=== PATIENT | female | born 2000 | race African-American/Black ===

== ENCOUNTER 2023-01-08 12:03 | Emergency (ER) | payer BC ==
[2023-01-08] MEDS ORDERED: ONDANSETRON 4 MG/2 ML VIAL ONE (13:14)
[2023-01-08] MEDS ORDERED: NA CHLORIDE 0.9% 1,000 ML ONE (13:14)
[2023-01-08 13:18] LABS: Absolute Lymphocytes (CBC) 1.6 K/uL (0.7-4.9); Hematocrit 43.5 % (36.0-45.0); Lymphocytes % 26.6 % (15.3-44.8); MCV 88.1 fL (80-100); RBC Red Blood Cell Count 4.93 M/uL (3.86-4.86)
[2023-01-08 13:43] LABS: Albumin 3.6 g/dL (3.4-5.0); Bilirubin Total 0.2 mg/dL (0.2-1.0); Protein, Total 7.3 g/dL (6.4-8.2)
[2023-01-08 13:58] LABS: Specific Gravity > 1.030 (1.005-1.030)
[2023-01-08 14:02] LABS: Specific Gravity > 1.030 (1.005-1.030); Urine Bacteria 20-50 /HPF (<20); Urine Bilirubin NEGATIVE (Negative); Urine Blood Negative (Negative); Urine Clarity Extremely Turbid (Clear); Urine Color Yellow (Yellow); Urine Glucose NEGATIVE (Negative); Urine Mucus 4+ /HPF (None Seen); Urine Protein 1+ (Negative); Urine Urobilinogen Normal (Normal)
--- NOTE | 2023-01-08 14:32 | RAD REPORT ---
EXAM DESCRIPTION: CTAbdomen Pelvis W Contrast - 01/08/2023 2:23 pm CLINICAL HISTORY: Abdominal pain. ABD PAIN COMPARISON: No comparisons TECHNIQUE: Biphasic CT imaging of the abdomen and pelvis was performed with 100 ml non-ionic IV cont rast. All CT scans are performed using dose optimization technique as appropriate and may include automated exposure control or mA/KV adjustment according to patient size. FINDINGS: The lung bases are clear. The liver, spleen, pancreas, adrenal glands and kidneys are within normal limits. No bowel obstruction, free air, free fluid or abscess. There is wall thickening seen involving the th e cecum and ascending colon likely mild colitis. The appendix is normal. No evidence of significant lymphadenopathy. No suspicious bony findings. IMPRESSION: Mild right-sided colitis is suspected.
--- NOTE | 2023-01-08 15:04 | ER ---
Nurse's Notes [facility] Name: Paul Ware Age: 22 yrs Sex: Female : 2000 Arrival Date: 01/08/2023 Time: 12:03 Bed 3 Private MD: Diagnosis: Colitis Presentation: 01/08 12:16 Chief complaint: Patient states: abd pain, n/v/d. Coronavirus screen: Vaccine status: me1 Patient reports being unvaccinated. At this time, the client does not indicate any symptoms associated with coronavirus-19. Ebola Screen: No symptoms or risks identified at this time. Initial Sepsis Screen: Does the patient meet any 2 criteria? No. Patient's initial sepsis screen is negative. Does the patient have a suspected source of infection? No. Patient's initial sepsis screen is negative. Risk Assessment: Do you want to hurt yourself or someone else? Patient reports no desire to harm self or others. Onset of symptoms was January 07, 2023. 12:16 [place] Of [place] [facility] [place] Acuity: MIKEL 3 ss Triage Assessment: 12:16 General: Appears uncomfortable, well groomed, well developed, well nourished, Behavior me1 is calm, cooperative, appropriate for age, Reports feeling ill for n/v/d and suprapubic abdominal pain that started yesterday. Pain: Complains of pain in abdomen Pain radiates to back Pain currently is 6 out of 10 on a pain scale. Quality of pain is described as sharp, Pain began gradually, 1 day ago. Neuro: Level of Consciousness is awake, alert, obeys commands, Oriented to person, place, time, situation, Appropriate for age. Cardiovascular: Capillary refill < 3 seconds Patient's skin is warm and dry. Respiratory: Respiratory effort is even, unlabored, Respiratory pattern is regular, symmetrical. GI: Reports diarrhea, nausea, vomiting. ROLLER: 12:16 LMP [place]20[place] [facility] [place]: - Allergies: 12:16 No Known Allergies; me1 - Home Meds: 12:16 None [Active]; me1 - PMHx: 12:16 ovarian cyst; me1 - PSHx: 12:16 None; me1 - Immunization history:: Adult Immunizations up to date. - Social history:: Smoking status: Reported history of juuling and/or vaping. Screenin:35 [facility] ED Fall Risk Assessment (Adult) Score/Fall Risk Level 0 - 2 = Low Risk dd1 Oriented to surroundings, Maintained a safe environment, Educated pt \T\ family on fall prevention, incl call for assistance when getting out of bed, Assessed \T\ reinforced patient's understanding of fall precautions, Hourly rounding (assess needs \T\ fall precautionary measures) done. 12:35 Abuse screen: Denies threats or abuse. Denies injuries from another. Nutritional dd1 screening: NAUSEA AND VOMITING X1 DAY. Tuberculosis screening: No symptoms or risk factors identified. Assessment: 12:35 GI: No deficits noted. Abdomen is flat, non-distended, Bowel sounds present X 4 quads. dd1 Abdomen is tender to palpation in suprapubic area, right lower quadrant and left lower quadrant Reports lower abdominal pain, diarrhea, Patient currently denies bloody stool, HEMATURIA. Vital Signs: 12:16 BP 104 / 78; Pulse 84; Resp 17; Temp 98.8(O); Pulse Ox 99% on R/A; Weight 61.69 kg; me1 Height 5 ft. 3 in. ; Pain 6/10; 14:03 BP 117 / 86; Pulse 64; Resp 17; Pulse Ox 100% ; dd1 12:16 Body Mass Index 24.09 (61.69 kg, 160.02 cm) me1 12:16 Pain Scale: Adult in1 ED Course: 12:05 Patient arrived in ED. rg4 12:09 Brandy Yanez FNP-C is [facility]. kb 12:09 Woody Underwood MD is Attending Physician. kb 12:16 Triage completed. me1 12:16 Arm band placed on Patient placed in waiting room. me1 12:21 Primitivo Duvall, MARY ELLEN is Primary Nurse. bp 12:35 Patient has correct armband on for positive identification. Bed in low position. Adult dd1 w/ patient. Valuables Left with patient. 12:35 Provided Education on:. dd1 13:13 Inserted saline lock: 20 gauge in right antecubital area, using aseptic technique. dd1 13:15 CBC with Diff Sent. dd1 13:15 CMP Sent. dd1 13:15 Lipase Sent. dd1 14:24 CT Abd/Pelvis - IV Contrast Only In Process Unspecified. EDMS 15:19 No provider procedures requiring assistance completed. IV discontinued, intact, dd1 bleeding controlled, No redness/swelling at site. Pressure dressing applied. Administered Medications: 13:12 Drug: Ondansetron IVP 4 mg Route: IVP; Site: right antecubital; dd1 13:13 Drug: NS 0.9% IV 1000 ml Route: IV; Rate: 1 bolus; Site: right antecubital; dd1 15:20 Follow up: Response: No adverse reaction; IV Status: Completed infusion; IV Intake: dd1 1000ml Medication: 12:35 VIS not applicable for this client. dd1 Intake: 15:20 IV: 1000ml; Total: 1000ml. dd1 Outcome: 15:03 Discharge ordered by MD. langford 15:19 Discharged to home ambulatory, with friend. dd1 15:19 Condition: good 15:19 Discharge instructions given to patient, Instructed on discharge instructions, follow up and referral plans. medication usage, Demonstrated understanding of instructions, follow-up care, medications, Prescriptions given X 1. 15:20 Patient left the ED. dd1 Signatures: Dispatcher [employer] EDMS Brandy Yanez, X RAY TECHNICIAN-C X RAY TECHNICIAN-Ckb Jenna Curiel, RN RN ss Toma Ayers rg4 Primitivo Duvall RN RN Hannah Chun, MARY ELLEN RN in1 Ruben Valles, MARY ELLEN RN dd1 Corrections: (The following items were deleted from the chart) 13:28 12:16 Acuity: MIKEL 4 me1 ss
--- NOTE | 2023-01-08 15:04 | EDPHYS ---
Physician Documentation [facility] Name: Paul Ware Age: 22 yrs Sex: Female : 2000 Arrival Date: 01/08/2023 Time: 12:03 Bed 3 Private MD: ED Physician Woody Underwood HPI: 01/08 14:05 This 22 yrs old Black Female presents to ER via Ambulatory with complaints of Abdominal kb Pain, Vomiting/Diarrhea. 14:05 The patient presents with abdominal pain in the lower abdomen. Onset: The kb symptoms/episode began/occurred yesterday. The symptoms do not radiate. Associated signs and symptoms: Pertinent positives: nausea, Pertinent negatives: constipation, diarrhea, fever, vomiting. The symptoms are described as constant. Modifying factors: The symptoms are alleviated by nothing, the symptoms are aggravated by nothing. Severity of pain: At its worst the pain was moderate in the emergency department the pain is unchanged. The patient has not experienced similar symptoms in the past. The patient has not recently seen a physician. 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 - Social history:: Smoking status: Reported history of juuling and/or vaping. ROS: 14:04 Constitutional: Negative for fever, chills, and weight loss. kb 14:04 Abdomen/GI: Positive for abdominal pain, nausea and vomiting, Negative for diarrhea, constipation. 14:04 All other systems are negative. Exam: 14:04 Constitutional: This is a well developed, well nourished patient who is awake, alert, kb and in no acute distress. Head/Face: Normocephalic, atraumatic. ENT: Moist Mucous membranes Cardiovascular: Regular rate and rhythm with a normal S1 and S2. No gallops, murmurs, or rubs. No pulse deficits. Respiratory: Respirations even and unlabored. No increased work of breathing. Talking in full sentences Skin: Warm, dry with normal turgor. Normal color. MS/ Extremity: Pulses equal, no cyanosis. Neurovascular intact. Full, normal range of motion. Neuro: Awake and alert, GCS 15, oriented to person, place, time, and situation. Moves all extremities. Normal gait. 14:04 Abdomen/GI: Inspection: abdomen appears normal, Bowel sounds: normal, Palpation: soft, in all quadrants, mild abdominal tenderness, in the suprapubic area and left lower quadrant, moderate abdominal tenderness, in the right lower quadrant. Vital Signs: 12:16 BP 104 / 78; Pulse 84; Resp 17; Temp 98.8(O); Pulse Ox 99% on R/A; Weight 61.69 kg; me1 Height 5 ft. 3 in. ; Pain 6/10; 14:03 BP 117 / 86; Pulse 64; Resp 17; Pulse Ox 100% ; dd1 12:16 Body Mass Index 24.09 (61.69 kg, 160.02 cm) me1 12:16 Pain Scale: Adult me1 MDM: 12:09 Patient medically screened. kb 14:04 Differential diagnosis: appendicitis, non-specific abd pain, Pyelonephritis, urinary kb tract infection, ovarian cyst. Data reviewed: vital signs, nurses notes. 15:05 Counseling: I had a detailed discussion with the patient and/or guardian regarding: the kb historical points, exam findings, and any diagnostic results supporting the discharge/admit diagnosis, lab results, radiology results, the need for outpatient follow up, a family practitioner, to return to the emergency department if symptoms worsen or persist or if there are any questions or concerns that arise at home. 01/08 13:02 Order name: CBC with Diff; Complete Time: 13:25 kb 01/08 13:02 Order name: CMP; Complete Time: 13:48 kb 01/08 13:02 Order name: Lipase; Complete Time: 13:48 kb 01/08 13:02 Order name: Test, Urine; Complete Time: 14:04 kb 01/08 13:02 Order name: Urinalysis w/ reflexes; Complete Time: 14:04 kb 01/08 13:48 Order name: CT Abd/Pelvis - IV Contrast Only; Complete Time: 14:33 kb 01/08 13:02 Order name: IV Saline Lock; Complete Time: 13:15 kb 01/08 13:02 Order name: Labs collected and sent; Complete Time: 13:15 kb Administered Medications: 13:12 Drug: Ondansetron IVP 4 mg Route: IVP; Site: right antecubital; dd1 13:13 Drug: NS 0.9% IV 1000 ml Route: IV; Rate: 1 bolus; Site: right antecubital; dd1 15:20 Follow up: Response: No adverse reaction; IV Status: Completed infusion; IV Intake: dd1 1000ml Disposition: 15:49 Co-signature as Attending Physician, Woody Underwood MD I reviewed the patient's care rn provided by the Advanced Practice Provider and agree with the diagnosis and treatment plan. Disposition Summary: 01/08/23 15:03 Discharge Ordered Location: Home kb Condition: Stable kb Diagnosis - Colitis kb Followup: kb - With: Emergency Department - When: As needed - Reason: Worsening of condition Followup: kb - With: Private Physician - When: 2 - 3 days - Reason: Recheck today's complaints, Continuance of care, Re-evaluation by your physician Discharge Instructions: - Discharge Summary Sheet kb - Colitis kb Forms: - Medication Reconciliation Form kb - Thank You Letter kb - Antibiotic Education kb - Prescription Opioid Use kb - Patient Portal Instructions kb Prescriptions: - Augmentin 875-125 mg Oral Tablet - take 1 tablet by ORAL route every 12 hours for 10 days; 20 tablet; Refills: 0, kb Product Selection Permitted Signatures: Dispatcher [employer] Brandy Newell, SENIOR ACCOUNTING ANALYST-C SENIOR ACCOUNTING ANALYST-Woody Hewitt MD MD rn Eddleman, Michelle RN RN me1 Ruben Valles RN RN dd1
[2023-01-08 15:33] VITALS: TEMP 98.8
[2023-01-08 15:35] VITALS: BP 117/86; O2SAT 100
== END 2023-01-08 15:20 | disposition home or self-care (01) ==
LOC: ER 12:03
DX: K52.9 Noninfective gastroenteritis and colitis, unspecified (principal)
CPT/HCPCS: 96361; 85025; 81001; 36415; 81025; 83690; 80053; 74177; 96374; 99284; Q9967; J2405; J7030